=== PATIENT | male | born 1990 | race African-American/Black ===

== ENCOUNTER 2016-07-01 14:15 | Emergency (ER) | payer SELFPAY ==
[~2016-07-01] VITALS: Ht 193 cm; Wt 182.0 kg
[~2016-07-01 14:15] MED LIST: PRED20 PO; Z.0.NO CURRENT MEDS; ZYRT10TA12 PO
[2016-07-01 14:17] VITALS: BP 143/88; PULSE 94; RESP 20; TEMP 97.9; O2SAT 99
--- NOTE | 2016-07-01 15:00 | PD ---
HPI Chief Complaint: Skin Problem Time Seen by Provider: 14:45 Travel History International Travel<30 days: No Contact w/Intl Traveler<30days: No Traveled to known affect area: No History of Present Illness HPI 25-year-old Afro-[place] male coming in with 2 day history of generalized itchy rash. Patient denies fever, chills, or other constitutional symptoms. Patient cannot think of any new exposures. Patient states a similar episode a couple of years ago and they did not know whether that was from as well. Patient has no difficulties breathing, swallowing, or wheezing. He has no significant medical history. He takes no medication. He has no known drug allergies. [facility] Social History Alcohol Use: No Tobacco Use: No Substance Use: No Allergies-Medications (Allergen,Severity, Reaction): Coded Allergies: No Known Allergies (Unverified , 07/01/16) Reported Meds & Prescriptions Reported Meds & Active Scripts Active No Active Prescriptions or Reported Medications Review of Systems General / Constitutional: No: Fever Eyes: No: Visual changes HENT: No: Headaches Cardiovascular: No: Chest Pain or Discomfort Respiratory: No: Shortness of Breath Gastrointestinal: No: Abdominal Pain Genitourinary: No: Dysuria Musculoskeletal: No: Pain Skin: Positive Rash, Positive Itching Neurologic: No: Weakness Psychiatric: No: Depression Endocrine: No: Polydipsia Hematologic/Lymphatic: No: Easy Bruising Physical Exam Narrative GENERAL: Patient appears in mild distress. SKIN: Warm and dry. Patient has a generalized raised erythematous rash to the trunk, in both upper and lower extremities. It does not affect the neck or face. HEAD: Atraumatic. Normocephalic. EYES: Pupils equal and round. No scleral icterus. No injection or drainage. ENT: No nasal bleeding or discharge. Mucous membranes pink and moist. Pharynx is clear. Airway is patent. NECK: Trachea midline. Neck is supple nontender. CARDIOVASCULAR: Regular rate and rhythm. RESPIRATORY: No accessory muscle use. Clear to auscultation. Breath sounds equal bilaterally. MUSCULOSKELETAL: Extremities without clubbing, cyanosis, or edema. No obvious deformities. NEUROLOGICAL: Awake and alert. No obvious cranial nerve deficits. Motor grossly within normal limits. Five out of 5 muscle strength in the arms and legs. Normal speech. PSYCHIATRIC: Appropriate mood and affect; insight and judgment normal. Data Data Last Documented VS Vital Signs Date Time Temp Pulse Resp B/P Pulse Ox O2 Delivery O2 Flow Rate FiO2 07/01/16 14:17 97.9 94 20 143/88 99 Room Air MDM Medical Decision Making Medical Screen Exam Complete: Yes Emergency Medical Condition: Yes Differential Diagnosis Atopic dermatitis. Viral rash. Allergic rash. Narrative Course Patient is medically stable at time of exam. Patient is given 60 mg prednisone by mouth. Patiently treated outpatient with a prednisone tapering pack as well as Benadryl 25 mg every 6 hours when necessary. Patient is recommended to follow-up with local primary care physician and possibly seek out allergy testing. Patient can return to emergency Department with worsening symptoms if necessary. Diagnosis Primary Impression: Allergic dermatitis Referrals: Primary Care Physician Patient Instructions: Dermatitis (ED), General Instructions Additional Instructions: Patiently treated outpatient with a prednisone tapering pack as well as Benadryl 25 mg every 6 hours when necessary. Patient is recommended to follow-up with local primary care physician and possibly seek out allergy testing. Patient can return to emergency Department with worsening symptoms if necessary. Med/Other Pt SpecificInfo: Prescription(s) given Scripts Diphenhydramine (Benadryl Allergy)25 Mg Tab25 Mg PO Q6H PRN (ALLERGIES) #30 TAB Ref 0 Prov:Ramos Francis MD 07/01/16 Prednisone (48) 10 mg tab Dose Pack 10 Mg Dspk10 Mg PO DIRECTED #1 DSPK Prov:Ramos Francis MD 07/01/16 Disposition: 01 DISCHARGE HOME Condition: Stable Galo Colon Jul 01, 2016 15:00
[2016-07-01] MEDS ORDERED: PRED10PA2 PO (15:01)
[2016-07-01] MEDS ORDERED: BENA25TA3 PO (15:01)
[2016-07-01] MEDS ORDERED: predniSONE 20 MG TAB PO ONE (15:15)
== END 2016-07-01 15:24 | disposition home or self-care (01) ==
LOC: NEPB 14:15
DX: L23.9 Allergic contact dermatitis, unspecified cause (principal)
CPT/HCPCS: 99282; J7512